=== PATIENT | female | born 1950 | race Caucasian/White ===

== ENCOUNTER 2018-09-17 15:11 | Emergency (ER) | payer MEDICARE ==
--- NOTE | 2018-09-17 16:06 | ED Physician Documentation ---
Dyspnea - HISTORIAN Historian: patient - HPI Stated Complaint: ran out of SO Chief Complaint: Wheezing Additional Information: Patient, with PMH of 02 dependent COPD, presents to ED with shortness of breath while traveling through town after she ran out of oxygen. She normally wears 3 liters O2 per nasal cannula continuously. Patient states she has been out of her inhalers for several months and is almost out of her nebulizer treatments as well. She has difficulty finding the money to pay for prescriptions. She only uses the nebulizer when she thinks she needs it. Patient is still smoking a half a pack a day. Onset: hours (2) Duration: continues in ED Severity: moderate Exacerbated By: exertion Associated Symptoms: none, productive cough - ROS CONST: no problems EYES/ENT: none GI/: none NEURO/PSYCH: denies: headache MS/SKIN/LYMPH: none - PAST HX Lung Disease: COPD PE Risk Factors: none Surgeries/Procedures: none Other History: none Allergies/Adverse Reactions: Allergies Allergy/AdvReac Type Severity Reaction Status Date / Time erythromycin base Allergy Unknown Verified 09/17/18 15:22 [Erythromycin Base] Penicillins Allergy Unknown Verified 09/17/18 15:22 Sulfa (Sulfonamide Allergy Unknown Verified 09/17/18 15:22 Antibiotics) tetracycline [Tetracycline] Allergy Unknown Verified 09/17/18 15:22 Home Medications: Ambulatory Orders Medication Instructions Recorded Albuterol Sulfate [Ventolin Hfa] 2 puff IH DIRECTED 03/21/14 Aspirin EC [Ecotrin] 81 mg PO DAILY 03/21/14 Atorvastatin Calcium [Lipitor] 40 mg PO DAILY 03/21/14 Budesonide/Formoterol Fumarate 2 inh IH BID 03/21/14 [Symbicort 160-4.5 Mcg Inhaler] Bupropion HCl 75 mg PO TID 03/21/14 Calcium Carb 600Mg/Vit D-3 400 1 each PO DAILY 03/21/14 [CALTRATE WITH D] Dicyclomine HCl 20 mg PO QID 03/21/14 Docusate Sodium [Colace] 100 mg PO BID 03/21/14 Fluticasone Furoate [Veramyst] 10 gm NS DIRECTED 03/21/14 Furosemide 40 mg PO DAILY 03/21/14 Ipratropium/Albuterol Sulfate 3 ml NEB QID 03/21/14 [Duoneb] LORazepam [Ativan] 1 mg PO TID 03/21/14 Lisinopril [Prinivil] 10 mg PO QD 03/21/14 Metformin HCl [Glucophage] 500 mg PO [id number] 03/21/14 Metoprolol Tartrate [LOPRESSOR] 25 mg PO TID 03/21/14 Montelukast Sodium [Singulair] 10 mg PO HS 03/21/14 Niacin 500 mg PO TID 03/21/14 Omeprazole [Prilosec] 40 mg PO DAILY 03/21/14 PARoxetine HCL [Paxil] 20 mg PO QD 03/21/14 - SOCIAL HX Smoking History: cigarettes, less than 1 pack/day Alcohol Use: none Drug Use: none - FAMILY HX Family History: none - VITAL SIGNS Vital Signs: Vital Signs Temp Pulse Resp BP Pulse Ox 171/80 03/21/14 13:59 - REVIEWED ASSESSMENTS Nursing Assessment Reviewed: Yes Vitals Reviewed: Yes Progress - Progress Progress: Report Submission Date: Sep 17, 2018 6:31:01 PM CDT Patient Study Name: BARBER SWENSON Date: Sep 17, 2018 4:56:42 PM CDT Modality Type: DX Gender: F Description: CHEST 2VIEW : 54 Institution: [facility] Physician: SHAI GARCIA Chest, PA and lateral HISTORY Chest pain, shortness of breath FINDINGS Left subclavian dual lead transvenous pacemaker is present. There is no pleural effusion or pneumothorax. Interstitial markings are increased. Heart size and pulmonary vascularity are normal. Since 1602 hours, little change has occurred. IMPRESSION No active pulmonary disease. Electronically signed on Sep 17, 2018 6:31:01 PM CDT by: Marcelo Garrett ED Results Lab/Radiology - Orders Orders: ED Orders Category Date Time Status CHEST 1VIEW [RAD] Stat Exams 09/17/18 Ordered Ipratropium/Albuterol Sulfate [Duoneb] Med 09/17/18 15:59 Once 3 ml NEB NOW ONE Oxygen Daily Oxygen 09/17/18 16:00 Ordered Dyspnea Physical Exam - EXAM General Appearance: no acute distress, alert EENT: YOLA Neck: No: lymphadenopathy Respiratory: no resp. distress, prolonged expirations, decreased air movement CVS: reg. rate & rhythm, no murmur Abdomen: non-tender Skin: color nml Extremities: non-tender Neuro/Psych: oriented x3 Discharge Clincal Impression: Has run out of medications, COPD mixed type Referrals: Primary Doctor,No [Primary Care Provider] - 2 Days Additional Instructions: 1. Use oxygen as directed 2. Follow up with PCP within 1 week 3. Return to ED for new or worsening symptoms Condition: Stable Disposition: 01 HOME, SELF-CARE Decision to Admit: NO Date of Decison to Admit: 09/17/18 Decision Time: 18:46
[2018-09-17] MEDS: IPRATROPIUM/ALBUTEROL SULFATE 3 ML AMPUL.NEB NEB ONE (16:20)
[2018-09-17 18:59] VITALS: BP 132/62
--- NOTE | 2018-09-17 20:58 | Diagnostic Imaging Report ---
SHAI GARCIA [facility] [address] [facility] [address], [place]. [address] Report Submission Date: Sep 17, 2018 6:31:01 PM CDT Patient Study Name: BARBER SWENSON Date: Sep 17, 2018 4:56:42 PM CDT Modality Type: DX Gender: F Description: CHEST 2VIEW : 54 Institution: [facility] Physician: SHAI GARCIA Chest, PA and lateral HISTORY Chest pain, shortness of breath FINDINGS Left subclavian dual lead transvenous pacemaker is present. There is no pleural effusion or pneumothorax. Interstitial markings are increased. Heart size and pulmonary vascularity are normal. Since 1602 hours, little change has occurred. IMPRESSION No active pulmonary disease. Electronically signed on Sep 17, 2018 6:31:01 PM CDT by: Marcelo OCHOA
--- NOTE | 2018-09-17 21:04 | Diagnostic Imaging Report ---
SHAI GARCIA [facility] [address] [facility].[address] [address] Report Submission Date: Sep 17, 2018 4:24:09 PM CDT Patient Study Name: BARBER SWENSON Date: Sep 17, 2018 4:00:03 PM CDT Modality Type: DX Gender: F Description: CHEST 1VIEW : 54 Institution: [facility] Physician: SHAI GARCIA Examination: Portable chest History: Evaluate lungs. Shortness of breath Comparison exam: None provided. Findings: Single view of the chest demonstrates a normal cardiac and mediastinal silhouette. Lung sexton without focal infiltrate. Vague density right lower lung. No blunting of the costophrenic margins. Left-sided cardiac pacemaker. Articular degenerative changes. Impression: No acute pulmonary process. Vague density right lower lung: possibly overlapping shadows - consider obtaining a formal PA and lateral film to better evaluate. Electronically signed on Sep 17, 2018 4:24:09 PM CDT by: Rai OCHOA
== END 2018-09-17 18:55 | disposition home or self-care (01) ==
LOC: ED 15:11
DX: J44.9 Chronic obstructive pulmonary disease, unspecified (principal); Z99.81 Dependence on supplemental oxygen; Z72.0 Tobacco use
CPT/HCPCS: 71045; 71046; 94640; 99283; 99284